=== PATIENT | female | born 1970 | race Caucasian/White ===

== ENCOUNTER 2025-05-05 08:37 | Emergency (ER) | payer OTHER, SELFPAY ==
[2025-05-05] VITALS (9 sets, daily range): BP systolic 137–169; BP diastolic 91–106; BMI 41.9
--- NOTE | 2025-05-05 09:36 | EDRN ---
pt started w/ pain in her R flank pain on April 21. On the pain was extreme. Pt went to ER and had a CT and was diagnosed w/ UTI though did think she had a kidney stone and also diagnosed w/ mesnteric adenitis. Pt was placed on cedinir for 7
days 300 mg BID. In 3 days felt better did not need pain meds. Pt returned home a week ago and took antibiotic to . This week pt noted urinary frequency and pain started again. Pain sharp last night w/ a pressure. Pain sharp w/ movement. Pt
was at at 8:00 am. Urine test clear w/ small trace of blood. Pt advised to come to ER by for additional testing.
--- NOTE | 2025-05-05 09:47 | EDRN ---
Samara ALVAREZ in room w/pt.
--- NOTE | 2025-05-05 09:54 | EDRN ---
Samara Kramer in room w/ pt.
--- NOTE | 2025-05-05 10:01 | ED.GENMED ---
History of Present Illness
General
Chief Complaint: Flank Pain
Source: patient
Exam Limitations: none
Time Seen by Provider: 05/05/25 09:33
Nursing documentation reviewed up to this point in time: agreed with
History of Present Illness
History of Present Illness:
The patient is a 54-year-old female with history of hypertension who presents to the emergency department for evaluation of flank pain. Patient states she had a similar pain 2 weeks ago while traveling in [place] and was seen at an emergency
department at that time, was diagnosed with a UTI and started on a course of cefdinir. Patient states she completed cefdinir approximately 5 days ago. Her symptoms had improved greatly until last night when she started experiencing a similar pain
described as sharp, intermittent stabbing pain in her right upper flank. She also describes a pressure type sensation in that same location.
She was seen by her primary care provider this morning where she had a negative urinalysis and was sent to the emergency department for further evaluation.
Patient denies any associated fever, cough, chest pain, or shortness of breath. No associated nausea, vomiting, dysuria, or gross hematuria. No changes in bowel habits
Past History
Past History
ED Past Medical History: HTN
ED Past Surgical History: Gynecological (D&C) and Other (Hemorrhoidectomy)
Social History
Tobacco: Non-smoker
Alcohol: Occasional
Drug: None
Personal:
Living: with family
Review of Systems
Review of Systems
Allergies reviewed?: Yes
All Other Systems: ROS reviewed and negative except as documented in HPI and ROS
Phy Exam
Physical Exam
Physical Exam:
Vitals: Hypertensive, otherwise vital signs stable. Afebrile
General: Patient is well appearing, no acute distress
Skin: Warm and dry, no rashes or lesions
Head: Normocephalic, atraumatic
Eyes: Sclera nonicteric.
Throat: Protecting airway
Neck: Normal ROM, no cervical spine tenderness, no meningismus
Cardiac: Regular rate and rhythm, no murmurs.
Pulm: Normal respiratory effort, no wheezes, rales, rhonchi heard on exam
Abdomen: Abdomen soft and nontender. Negative Lobato sign. Some reproducible tenderness in right upper flank. No CVA tenderness
Extremities: No evidence of cyanosis or edema
Neuro: AAOx3. Grossly intact.
Psychiatric: Normal affect.
Course
Orders/Labs/Results
Orders:
Orders
05/05/25 09:35
IV Insert/Care/Rem.- Treatment PRN
05/05/25 09:49
Complete Blood Count/With Diff Urgent
Comprehensive Metabolic Panel Urgent
Lipase Urgent
Comment: ADD ON
Urinalysis Reflex To Culture Urgent
Date Specimen was Collected: 05/05/25
Time Specimen was Collected: 09:35
Urine Microscopic Reflex Cult Urgent
05/05/25 09:57
Add On- LAB Urgent
Tests Added?: lipase
Ketorolac [Toradol] 15 mg IV NOW STA
US Abdomen Complete/Upper Urgent
Comment:
Reason For Exam: Right upper flank pain
05/05/25 12:08
CT Abd/pelvis W Iv Cont Urgent
Comment:
Reason For Exam: Right upper flank pain
Abnormal Lab Results
05/05/25
09:49
MCHC 31.4 L g/dL
(33.0-37.0)
RDW 14.7 H %
(11.5-14.5)
MPV 12.0 H fL
(7.4-10.4)
Abs Immat Gran (auto) 0.1 H 10^3/uL
(0-0.05)
Absolute Neuts (auto) 6.6 H 10^3/uL
(1.4-6.5)
Absolute Monos (auto) 0.9 H 10^3/uL
(0.1-0.6)
Immature Gran % 0.8 H %
(0-0.5)
BUN 19 H mg/dl
(7-17)
Glucose 112 H mg/dl
(70-99)
Urine Bacteria (Reflex) Few A
(Negative)
Urine Albumin (Reflex) 2+ A
(Neg - Trace)
05/05/25 09:49
05/05/25 09:49
Vital Signs
Initial and Last Documented VS:
Initial Vital Signs
Temp Pulse Resp BP Pulse Ox
98.2 F 96 18 169/106 95
05/05/25 08:43 05/05/25 08:43 05/05/25 08:43 05/05/25 08:43 05/05/25 08:43
Last Documented Vital Signs
Temp Pulse Resp BP Pulse Ox
98.2 F 75 16 149/98 98
05/05/25 08:43 05/05/25 15:00 05/05/25 15:00 05/05/25 15:00 05/05/25 15:00
MDM/Problems Addressed
Differential Diagnosis Includes:
Not limited to: UTI, pyelonephritis, renal colic, biliary colic, acute cholecystitis, muscle strain/spasm, etc.
MDM/Problems Addressed:
54-year-old female with intermittent right upper flank pain/pressure since last night. She had similar symptoms approximate 2 weeks ago and was treated with a course of cefdinir for a suspected UTI. No fever, chest pain, shortness of breath,
cough, urinary symptoms, or vomiting. Vitals and physical exam as above. Patient well-appearing, nontoxic. Abdomen benign. Cardio/pulmonary assessment unremarkable. There is some reproducible tenderness in right upper flank without any
ecchymosis or rash. Differential broad. Given recent UTI�considered possible cystitis, pyelonephritis, or possibly renal colic. Other considerations include biliary colic, acute cholecystitis, or musculoskeletal cause. ED plan: Labs, UA. Will
start with abdominal ultrasound and treat pain. Will monitor closely and reassess after above.
Update: Labs without clinically significant abnormalities. UA without evidence of infection. US without acute finidings, isa noted and discussed with patient. Her symptoms have resolved and she has had no pain since receiving IV toradol. At this
point low suspicion for infectious proces given she is afebrile with benign abdominal exam and normal laboratory analysis. Shared decision making utilized regarding proceeding with CT scan for close monitoring at home. Patient would prefer CT scan.
Update: CT scan w/o acute findings to explain patients presenting symptoms. Mesenteric panniculitis noted. Also incidental right breast mass noted and discussed at length with patient. She apparently has had multple cysts in that breast however
discussed importance of f/u US and mammogram. Patient given CT report. Do not suspect related to pts symptoms.
Ultimately - work up in ED negative. Do not suspect infectious process. She has no SOB or pleuritic component to pain with normal vitals - do not suspect PE. Posisble musculoskeletal in nature. Advised supportive care at home and primary care f/u.
She will call OBGYN to f/u regarding breast mass. Return precuations discussed.
Chronic conditions affecting care:
Hypertension
Acute Exacerbation and/or Progression of Chronic Illness:
Acutely hypertensive
*Radiology
Radiology exam reviewed: radiology read reviewed
*Pulse Oximetry
SaO2: 97
Oxygen Mode of Delivery: Room air
Patient hypoxic: no
*EKG
Interpreted by ED Provider?: NA
*Hand Knitter Interpretation
Rate: Hand Knitter- N/A
*Critical Care Note
Total Time (30-74mins, 75-104mins- exclusive of procedures): Not Applicable
ED Attending Note
-
Portions of this chart may have been created with voice recognition software.� Occasional wrong word or��sound alike� substitutions may have occurred due to the inherent limitations of voice recognition software.
Discharge Plan
Departure
Patient Disposition: Home (Routine Discharge)
Date of Disposition: 05/05/25
Time of Disposition: 15:25
Patient with high blood pressure during this ER visit?: Yes
Discharge Problem:
Flank pain
Instructions: Flank Pain (DC), BLOOD PRESSURE
Prescriptions:
No Action
hydrocodone-acetaminophen 1 TABLET tablet
1 tab PO Q4HPRN PRN (Reason: severe pain) Qty: 15 0RF
hydrocodone-acetaminophen 1 TABLET tablet
1 tab PO Q4HPRN PRN (Reason: pain) Qty: 7 0RF
lisinopril 5 mg tablet
5 mg PO DAILY Qty: 10 0RF
amoxicillin-pot clavulanate [Augmentin] 500-125 mg tablet
1 tab PO BID Qty: 14 0RF
Referrals:
Josie Dennis PA-C [Family Provider, [facility]] - Follow up in 5-7 days
Activity Restrictions/Additional Instructions:
RETURN TO THE EMERGENCY DEPARTMENT WITH ANY FEVER, CHILLS, INTRACTABLE VOMITING, PERSISTENT/WORSENING FLANK PAIN, CHEST PAIN OR SHORTNESS OF BREATH, OR ANY OTHER CONCERNS
- Your lab work and urine sample showed no acute abnormalities.
- Your CT scan did show a lesion in your right breast. It is very important that you have this followed up with your [facility] [employer] for dedicated ultrasound/mammogram.
- Continue to stay well hydrated. Take Tylenol and/or Motrin as needed for pain.
- Follow-up with your primary care provider for further evaluation/management to ensure that your symptoms are
Monitor your symptoms closely and return to the emergency department with any acute worsening/new symptoms or any other concerns
Interventions
Interventions:
*Risk Screen - Suicide Last Done: 05/05/25 08:43
*General Assessment Last Done: 05/05/25 09:47
*Neglect/Abuse Screening Last Done: 05/05/25 08:43
*ED- Fall Risk Assessment Last Done: 05/05/25 09:47
*ED COVID-19 Vaccine History Last Done: 05/05/25 08:43
*Nursing Disposition Last Done: 05/05/25 15:50
EF-Gimieh-Vuuputznzy Assessment Last Done: 05/05/25 09:54
ED-Female Genitourinary Assessment Last Done: 05/05/25 09:54
Discharge Date and Time
Discharge Date/Time: 05/05/25 15:50
Print Language: SYRIAN
[2025-05-05] MEDS: TORADOL 15 MG IV (10:02)
[2025-05-05 10:03] LABS: Hematocrit 46.2 % (37.0-47.0); Hemoglobin 14.5 g/dL (12.0-16.0); Mean Corp Hgb Conc. 31.4 g/dL (33.0-37.0); Mean Corpuscular Volume 86.4 fL (81.0-99.0); Nucleated Red Blood Cells % 0 %; Platelet Count 173 10^3/uL (130-400); Red Cell Dist. Width 14.7 % (11.5-14.5)
[2025-05-05 10:08] LABS: Urine Character Clear (Clear)
[2025-05-05 10:15] LABS: Urine Red Blood Cell 0-2 /HPF (0-2)
[2025-05-05 10:24] LABS: ALT (SGPT) 23 U/L (0-35); AST (SGOT) 19 U/L (14-36); Albumin 4.3 g/dl (3.5-5.0); Alkaline Phosphatase 78 U/L (38-126); Blood Urea Nitrogen 19 mg/dl (7-17); Calcium 9.3 mg/dl (8.4-10.2); Carbon Dioxide 27 mmol/L (22-30); Chloride 107 mmol/L (98-107); Estimated Creatinine Clearance 83 ml/min; Glucose 112 mg/dl (70-99); Lipase 89 U/L (23-300); Potassium 4.3 mmol/L (3.5-5.1); Sodium 138 mmol/L (135-145); Total Protein 6.9 g/dl (6.3-8.2); eGFR > 60.00
--- NOTE | 2025-05-05 11:51 | EDRN ---
Samara ALVAREZ in room w/ pt
== END 2025-05-05 15:50 | disposition home or self-care (01) ==
LOC: EMR 08:37
PROVIDERS: Physician Assistant; EMERGENCY PHYSICIAN Emergency Medicine; FAMILY PHYSICIAN Physician Assistant Medical
DX: R10.9 Unspecified abdominal pain (principal); I10 Essential (primary) hypertension; K65.4 Sclerosing mesenteritis
CPT/HCPCS: 99285; 96374; 74177; 76700; 80053; 81003; 81015; 83690; 85025; Q9967

== ENCOUNTER → 2025-05-17 09:19 | Outpatient (REF) | payer OTHER, SELFPAY | LOC: WDC 09:19 | PROVIDERS: ATTENDING PHYSICIAN Obstetrics & Gynecology Gynecology; FAMILY PHYSICIAN Physician Assistant Medical | DX: N63.10 Unspecified lump in the right breast, unspecified quadrant (principal) | CPT/HCPCS: 76642; 77062; 77066 ==

== ENCOUNTER → 2025-08-18 09:13 | Outpatient (REF) | payer OTHER, SELFPAY | LOC: WDC 09:13 | PROVIDERS: ATTENDING PHYSICIAN Surgery; FAMILY PHYSICIAN Physician Assistant Medical | DX: R92.8 Other abnormal and inconclusive findings on diagnostic imaging of breast (principal) | CPT/HCPCS: 76642 ==